=== PATIENT | male | born 2000 | race African-American/Black ===

== ENCOUNTER 2021-07-20 11:30 | Emergency (ER) | payer OTHER ==
[2021-07-20] MEDS ORDERED: LIDOCAINE HCL 2% (50ML VIAL) INF ONE (11:37)
[2021-07-20 11:39] VITALS: TEMP 98; BMI 20.8
[2021-07-20] MEDS ORDERED: LIDOCAINE HCL 2% (20ML MULTI-DOSE VIAL) ONE (11:41)
[2021-07-20] MEDS ORDERED: morphine CARPU-JECT 4 MG/1 ML DISP.SYRIN IM ONE (12:15)
[2021-07-20] MEDS ORDERED: morphine SULFATE 4 MG/ML VIAL ONE (12:16)
[2021-07-20 12:43] VITALS: BP 148/92; PULSE 81
== END 2021-07-20 13:55 | disposition home or self-care (01) ==
LOC: FER 11:30
PROC: 3E023NZ Introduction of Analgesics, Hypnotics, Sedatives into Muscle, Percutaneous Approach (ICD-10-PCS; principal; 2021-07-20)
PROC: 0RSJXZZ Reposition Right Shoulder Joint, External Approach (ICD-10-PCS; 2021-07-20)
DX: S43.004A Unspecified dislocation of right shoulder joint, initial encounter (principal); Y93.64 Activity, baseball
CPT/HCPCS: 73030-TC-RT-FY; 99284-25